=== PATIENT | female | born 1970 | race Caucasian/White ===

== ENCOUNTER 2018-06-07 18:04 | Emergency (ER) | payer OTHER ==
--- NOTE | 2018-06-07 20:19 | ED ---
Skin Complaint - HPI Summary HPI Summary: This patient is a 48 year old F presenting to [facility] with a chief complaint of a lump on her right lower labia that she noticed a week ago. She states that it is mildly painful. She also had lumps on her anus recently that resolved with a steroidal cream given by her PCP. They resolved 2 weeks ago. The patient rates the pain 5/10 in severity. Patient denies vaginal discharge. She states she has not been sexually active in the last 4 months. She had ovarian CA at 17 and had both ovaries removed, she is on control. She also states she had an outbreak of genital herpes 27 years ago that resolved with HCL treatment without any outbreaks since. - History of Current Complaint Chief Complaint: EDRashSkinAbscess Time Seen by Provider: 06/07/18 20:00 Stated Complaint: GENITAL PROBLEM Hx Obtained From: Patient Onset/Duration: Started Weeks Ago - 1, Still Present Skin Exposure Onset/Duration: Weeks Ago - 1 Timing: Constant Onset Severity: Moderate Current Severity: Moderate Pain Intensity: 5 Pain Scale Used: 0-10 Numeric Skin Location: Other: - labia Character: Redness, Painful Associated Signs & Symptoms: Negative - fever - Allergy/Home Medications Allergies/Adverse Reactions: Allergies Allergy/AdvReac Type Severity Reaction Status Date / Time erythromycin base Allergy Intermediate Rash And Verified 06/07/18 18:22 Itching Home Medications: Home Medications Norgestimate-Ethinyl Estradiol [Tri Femynor 28 Tablet] 1 tab PO DAILY 06/07/18 [ History Confirmed 06/07/18] PMH/Surg Hx/FS Hx/Imm Hx Endocrine/Hematology History: Reports: Other Endocrine/Hematological Disorders - herpes Cardiovascular History: Denies: Hx Hypercholesterolemia Respiratory History: Denies: Hx Chronic Obstructive Pulmonary Disease (COPD), Hx Cystic Fibrosis, Hx Pneumonia Neurological History: Reports: Hx Headaches Denies: Hx Migraine Infectious Disease History: No Infectious Disease History: Denies: Traveled Outside the [place] in Last 30 Days - Family History Known Family History: Negative: Seizure Disorder - Social History Lives: With Family Alcohol Use: Occasionally Hx Substance Use: No Substance Use Type: Reports: None Review of Systems Negative: Fever Negative: dysuria Positive: Other - lump on labia All Other Systems Reviewed And Are Negative: Yes Physical Exam - Summary Physical Exam Summary: VITAL SIGNS: Reviewed. GENERAL: Patient is a well-developed and nourished female who is lying comfortable in the stretcher. Patient is not in any acute respiratory distress. HEAD AND FACE: No signs of trauma. No ecchymosis, hematomas or skull depressions. No sinus tenderness. EYES: PERRLA, EOMI x 2, No injected conjunctiva, no nystagmus. EARS: Hearing grossly intact. Ear canals and tympanic membranes are within normal limits. MOUTH: Oropharynx within normal limits. NECK: Supple, trachea is midline, no adenopathy, no JVD, no carotid bruit, no c- spine tenderness, neck with full ROM. CHEST: Symmetric, no tenderness at palpation LUNGS: Clear to auscultation bilaterally. No wheezing or crackles. CVS: Regular rate and rhythm, S1 and S2 present, no murmurs or gallops appreciated. ABDOMEN: Soft, non-tender. No signs of distention. No rebound no guarding, and no masses palpated. Bowel sounds are normal. EXTREMITIES: FROM in all major joints, no edema, no cyanosis or clubbing. NEURO: Alert and oriented x 3. No acute neurological deficits. Speech is normal and follows commands. SKIN: Dry and warm Pelvic: Female RN Petros present for exam: there is a singular vesicular lesion on the right labia it is TTP and ulcerated. The patient did show a picture of her anus that she took on her cell phone from a previous flare up and from the picture it does look like she had a diffuse vesicular rash that is consistent with HSV. Triage Information Reviewed: Yes Vital Signs On Initial Exam: Initial Vitals Temp Pulse Resp BP Pulse Ox 98.1 F 74 14 134/74 98 06/07/18 18:17 06/07/18 18:17 06/07/18 18:17 06/07/18 18:17 06/07/18 18:17 Vital Signs Reviewed: Yes Diagnostics - Vital Signs Vital Signs Temp Pulse Resp BP Pulse Ox 06/07/18 18:17 98.1 F 74 14 134/74 98 - Laboratory Lab Statement: Any lab studies that have been ordered have been reviewed, and results considered in the medical decision making process. Course/Dx - Course Assessment/Plan: This patient is a 48 year old F presenting to [facility] with a chief complaint of a lump on her right lower labia that she noticed a week ago. She states that it is mildly painful. She also had lumps on her anus recently that resolved with a steroidal cream given by her PCP. They resolved 2 weeks ago. The patient rates the pain 5/10 in severity. Patient denies vaginal discharge. She states she has not been sexually active in the last 4 months. She had ovarian CA at 17 and had both ovaries removed, she is on control. She also states she had an outbreak of genital herpes 27 years ago that resolved with HCL treatment without any outbreaks since. In the ED course the patient was given Valtrex. Patient will be discharged with prescription for valtrex and follow up from PCP. The patient is agreeable with this plan. - Diagnoses Provider Diagnoses: Recurrent genital herpes Discharge - Sign-Out/Discharge Documenting (check all that apply): Patient Departure - Discharge Plan Condition: Stable Disposition: HOME Prescriptions: ValACYclovir (*) [Valtrex 1 GM(*)] 1 gm PO DAILY #4 tab Patient Education Materials: Genital Herpes Simplex (ED) Referrals: [facility] [place] [facility]FERRAL [Outside] - 3 Days Additional Instructions: RETURN TO THE EMERGENCY DEPARTMENT FOR CHANGING OR WORSENING SYMPTOMS - Billing Disposition and Condition Condition: STABLE Disposition: Home - Attestation Statements Document Initiated by Yonis: Yes Documenting Scribe: Albin Heart Provider For Whom Yonis is Documenting (Include Credential): Karime Adams MD Scribe Attestation: Albin Martin scribed for Karime Adams MD on 06/07/18 at 2132. Scribe Documentation Reviewed: Yes Provider Attestation: The documentation as recorded by the Albin wynne accurately reflects the service I personally performed and the decisions made by Adilia chino MD Status of Scribe Document: Viewed
[2018-06-07] MEDS ORDERED: ValACYclovir (*) 1 GM TAB PO ONE (20:23)
[2018-06-07 21:01] VITALS: BP 125/81
== END 2018-06-07 21:00 | disposition home or self-care (01) ==
LOC: ED 18:04
DX: A60.00 Herpesviral infection of urogenital system, unspecified (principal)
CPT/HCPCS: 99282; A9270-GY